=== PATIENT | female | born 1970 | race Caucasian/White ===

== ENCOUNTER → 2017-07-28 09:59 | Outpatient (CLI) | payer BC, SELFPAY ==
[2017-07-28 12:46] LABS: Anion Gap 8 (5-15); BUN 10 mg/dL (7-18); BUN/Creat Ratio 13.1 RATIO (10-20); Calcium,Total 8.6 mg/dL (8.5-10.1); Chloride 109 mmol/L (98-107); Creatinine, Serum 0.76 mg/dL (0.55-1.02); EST Glomerular Filtration Rate 87 mL/min (>60); Est Glom Filt Rate - Afr Amer 106 mL/min (>60); Glucose 91 mg/dL (74-106); Iron 127 ug/dL (50-170); Sodium Level 143 mmol/L (136-145); Thyroid Stim Hormone (TSH) 0.78 uIU/mL (0.358-3.74)
[2017-07-28 13:05] LABS: Hematocrit 40.1 % (37-47); Hemoglobin 12.9 g/dl (12.0-15.0); Mean Corp Hgb Conc 32.2 g/gl (32-36); Mean Corpuscular Hgb 29.1 pg (27.0-32.0); Mean Corpuscular Volume 90.5 fL (81-99); Mean Platelet Vol. 11.2 fl (6.2-12.0); Platelet Count 217 K/mm3 (150-450); RBC Distribution Width CV 13.9 % (11.6-14.6); Red Blood Count 4.43 M/mm3 (4.2-5.4); Scan Indicated on CBC? Y/N NO; White Blood Count 5.7 K/mm3 (4.4-11.0)
[2017-07-29 11:18] LABS: Vitamin B12 423 pg/mL (211-911); Vitamin D,25 Hydroxy 23.8 ng/mL (29.95-100.01)
== END ==
PROVIDERS: Family Provider Family Medicine; PCP Family Medicine; Visit Provider Family Medicine
DX: R53.83 Other fatigue (principal)
CPT/HCPCS: 36415; 80048; 82306; 82533; 82607; 83540; 84443; 85027

== ENCOUNTER → 2018-04-13 11:56 | Outpatient (CLI) | payer BC, SELFPAY ==
--- NOTE | 2018-04-13 12:05 | BI_ITS ---
MAMMOGRAPHY - BILATERAL SCREENING REASON FOR EXAM: Female, 47 years old. Routine annual screening examination. PERTINENT HISTORY: Non-contributory. Remote right stereotactic breast biopsy. TECHNIQUE: Digital bilateral breast amparo (3D mammographic acquisition) in the CC and MLO projections. 2-D mediolateral oblique (MLO) and craniocaudad (CC) views of both breasts were obtained. CAD: Full Field Digital Mammography with Computer Added Detection was performed. COMPARISON: Comparison is made with prior study dated September 12, 2017 and November 13, 2014. FINDINGS: Breast Composition: There are scattered areas of fibroglandular density. There are no dominant masses or suspicious calcifications. A tissue clip marker is once again seen in the deep superior lateral aspect of the right breast. Stable benign-appearing bilateral axillary lymph nodes. No other significant abnormalities are identified. There has been no significant change since the prior study. BI/SCREENING MAMM (CAD), BILAT IMPRESSION: Stable bilateral screening mammogram. Yearly follow-up mammogram recommended. (A) ASSESSMENT CATEGORY: BIRADS Category 2: Benign. A letter regarding these results will be sent to the patient by the facility within 30 days. Approximately 10% of breast cancers are not detected by mammography. A normal mammogram should not delay biopsy of a clinically suspicious abnormality. [id number] Electronically Signed: Richard Love MD at 14:03 EST , Service support ,
== END ==
PROVIDERS: Family Provider Family Medicine; PCP Family Medicine; Visit Provider Obstetrics & Gynecology
DX: Z12.31 Encounter for screening mammogram for malignant neoplasm of breast (principal)
CPT/HCPCS: 77063; 77067

== ENCOUNTER → 2018-07-24 11:04 | Outpatient (CLI) | payer BC, SELFPAY ==
[2018-07-24 13:18] LABS: Vitamin D,25 Hydroxy 22.2 ng/mL (29.95-100.01)
== END ==
PROVIDERS: Family Provider Family Medicine; PCP Family Medicine; Visit Provider Family Medicine
DX: E55.9 Vitamin D deficiency, unspecified (principal)
CPT/HCPCS: 36415; 82306

== ENCOUNTER → 2019-08-10 08:56 | Outpatient (CLI) | payer BC, SELFPAY ==
--- NOTE | 2019-08-10 08:58 | RAD_ITS ---
STUDY: X-RAY CHEST REASON FOR EXAM: Female, 48 years old. Cough since winter, getting worse TECHNIQUE: PA and lateral views of the chest. COMPARISON: Comparison is made with prior examination of June 04, 2011. FINDINGS: The lungs are clear and expanded. There is no demonstrated pleural abnormality. Normal size heart. Normal mediastinum and shashank. Normal visualized pulmonary arteries. Normal visualized aortic arch and descending thoracic aorta. There are mild degenerative changes of the visualized thoracic spine. Normal visualized ribs, clavicles, and shoulders. There is no demonstrated abnormality of the visualized soft tissue structures of the upper abdomen. RAD/Chest PA and Lateral IMPRESSION: Normal x-ray examination of the chest. Electronically Signed: Richard Love, at 10:27 EDT , Service support ,
== END ==
PROVIDERS: PCP Family Medicine; Referring Provider Family Medicine; Visit Provider Family Medicine
DX: R05 Cough (principal)
CPT/HCPCS: 71046

== ENCOUNTER 2020-05-30 11:06 | Outpatient (RCR) | payer BC, SELFPAY | END 2020-08-12 23:59 | LOC: IMMUN 11:06 | PROVIDERS: PCP Family Medicine; Visit Provider Family Medicine | DX: Z23 Encounter for immunization (principal) | CPT/HCPCS: 0001A; 0002A; 91300 ==

== ENCOUNTER → 2020-07-22 10:27 | Outpatient (CLI) | payer BC, SELFPAY ==
--- NOTE | 2020-07-22 10:34 | BI_ITS ---
MAMMOGRAPHY - BILATERAL SCREENING 3-D TOMOSYNTHESIS REASON FOR EXAM: Female, 49 years old. SCREENING PERTINENT HISTORY: No significant family history. TECHNIQUE: 2-D mammograms and 3-D Tomosynthesis of the breast (s) were performed. CAD was performed. COMPARISON: 04/13/2018 FINDINGS: The breast composition is composed of scattered fibroglandular density. Scattered benign calcifications are seen. No dense spiculated masses or suspicious microcalcifications are identified. No architectural distortion is identified. There is no skin thickening or retraction. There has been no significant change since the prior study. BI/SCRN MAMM (CAD)W/ARIANE BILAT IMPRESSION: No mammographic signs of malignancy. Routine yearly mammograms recommended. ASSESSMENT CATEGORY: BIRADS Category 1: Negative. A letter regarding these results will be sent to the patient by the facility within 30 days. FOLLOW UP RECOMMENDATION: Yearly follow up mammogram recommended. (A) Approximately 10% of breast cancers are not detected by mammography. A normal mammogram should not delay biopsy of a clinically suspicious abnormality. Electronically Signed: Hector Cho MD at 11:19 EDT , Service support ,
== END ==
PROVIDERS: PCP Family Medicine
DX: Z12.31 Encounter for screening mammogram for malignant neoplasm of breast (principal)
CPT/HCPCS: 77063; 77067

== ENCOUNTER 2021-06-21 09:24 | Observation (INO) | payer BC, SELFPAY ==
[2021-06-21] VITALS (13 sets, daily range): BP systolic 110–139; BP diastolic 64–100; PULSE 57–97; RESP 14–18; TEMP 35.6–36.9; O2SAT 97–100; BMI 26.5; BMI 26.9
--- NOTE | 2021-06-21 09:50 | EDS_ITS ---
HPI HPI - Female History of Present Illness Chief Complaint: Flank Pain Narrative Narrative: 50-year-old female presenting with right flank pain which started on . She states is fairly constant but intermittently sharper and radiates around the anterior aspect of the abdomen. She has nausea with this. She has no history of kidney stones. She denies urinary complaints. No constipation or diarrhea. She is not had a fever or chills. No vaginal complaints. PFSH PFSH Medical History no medical history Home Medications multivitamin 1 tab DAILY 06/21/21 [History Last Taken Unknown] Allergy/AdvReac Type Severity Reaction Status Date / Time Penicillins Allergy Hives Verified 06/21/21 09:27 Family History (Updated 06/21/21 @ 13:[address] Apple Castillo MD) Mother No problems noted. Surgical History (Updated 06/21/21 @ 13:[address] Apple Castillo MD) H/O abdominoplasty History of salpingectomy Social History Smoking Status: Never smoker ROS ROS ED Constitutional Constitutional ED: Denies chills or fever(s) Eyes Eyes: Denies blurry vision or diplopia ENT ENT ED: Denies rhinorrhea or sore throat Cardiovascular Cardiovascular: Denies chest pain or palpitations Respiratory/Chest Respiratory/Chest: Denies cough or dyspnea Gastrointestinal Gastrointestinal: Reports abdominal pain, nausea and vomiting; Denies constipation or diarrhea Genitourinary Genitourinary ED: Denies dysuria or hematuria Musculoskeletal Musculoskeletal: Denies myalgias Integumentary Denies rash Neurologic Neurologic: Denies headache(s) or weakness Psychiatric Psychiatric: Denies anxiety or depression EXAM Physical Exam Const Vital Signs: 06/21/21 09:25 06/21/21 09:38 06/21/21 10:40 Temperature 96.0 F L 98.5 F Temperature Source Temporal Oral Pulse Rate 97 69 Respiratory Rate 18 16 Respiratory Effort Normal Respiratory Pattern Normal Blood Pressure 138/100 H 110/78 Blood Pressure Mean 112 88 Pulse Ox 99 98 Oxygen Delivery Method Room Air Room Air 06/21/21 12:46 Temperature 97.8 F Temperature Source Oral Pulse Rate 66 Respiratory Rate 18 Respiratory Effort Respiratory Pattern Blood Pressure 132/84 H Blood Pressure Mean 100 Pulse Ox 98 Oxygen Delivery Method Room Air Positive well nourished General Appearance ED: NAD; Negative for pallor HEENT Reports moist mucous membranes Negative for trauma Eyes PERRL and EOMs intact bilaterally Resp normal respiratory effort and clear to auscultation bilaterally Cardio regular rate and regular rhythm GI GI Narrative: Negative Maravilla sign Palpation: tender RLQ and RUQ Back/Spine General Back: CVA tenderness right Neuro oriented x3, CN's II-XII intact bilaterally and no sensory deficits noted Sensorium / Orientation: alert Psych mental status grossly normal Skin no rashes or lesions noted General Skin Exam: Negative for jaundice or pallor MDM MDM MDM Narrative Medical decision making narrative: Patient presenting with abdominal pain. Initially I felt she might of had a kidney stone however after I obtained her urinalysis there was urine bilirubin, urobilinogen. No evidence of blood. Not consistent with UTI. I obtained a CBC which shows no leukocytosis. Hemoglobin hematocrit are stable. Platelets are normal. Renal function is also within normal limits however the patient's total bilirubin is 3.90, direct bilirubin 2.4, AST 129, ALT 325. Lipase is normal. Discussed with Dr. Castillo who recommended getting a right upper quadrant ultrasound rather than CAT scan. I ordered a right upper quadrant ultrasound which shows common duct dilatation. There are several small gallstones as well. There is no gallbladder wall thickening or signs of acute cholecystitis. I also spoke with Dr. Friend as Dr. Castillo felt the patient would need an ERCP. He did come to the emergency room to evaluate the patient with Dr. Castillo. Patient given Cipro and Flagyl due to penicillin allergy. She was given IV fluids. She only needed 1 dose of Toradol and 1 dose of 0.5 mg Dilaudid and she was comfortable. It was requested that I obtained an EKG which is a normal sinus rhythm with a ventricular rate of 68 bpm on my interpretation. A COVID test was ordered and is pending on patient transfer. This will be followed up by GI and surgery. Patient will be transported to a surgical suite for ERCP. Patient transported in stable condition. Impression: 1. Transaminitis 2. Choledocholithiasis Lab Data Attestation: I reviewed the patient's lab results. Labs: Laboratory Results - last 24 hr 06/21/21 06/21/21 06/21/21 09:40 10:25 10:25 WBC 6.0 RBC 4.98 Hgb 15.3 H Hct 45.3 MCV 91.0 MCH 30.7 MCHC 33.8 RDW Std Deviation 40.7 RDW Coeff of Jennifer 12.1 Plt Count 228 MPV 10.9 Immature Gran % (Auto) 0.300 Neut % (Auto) 62.4 Lymph % (Auto) 25.5 [place] % (Auto) 8.4 Eos % (Auto) 2.7 Baso % (Auto) 0.7 Absolute Neuts (auto) 3.7 Absolute Lymphs (auto) 1.52 Nucleated RBC % 0 Sodium 137 Potassium 4.1 Chloride 106 Carbon Dioxide 25.0 Anion Gap 6 BUN 9 Creatinine 0.81 Estim Creat Clear Calc 73.35 Est GFR (MDRD) Af Amer 97 Est GFR (MDRD) Non-Af 80 BUN/Creatinine Ratio 11.1 Glucose 107 H Calcium 8.8 Total Bilirubin 3.90 H Direct Bilirubin 2.84 H AST 129 H ALT 325 H Alkaline Phosphatase 96 Total Protein 7.8 Albumin 3.8 Globulin 4.0 Lipase 176 Urine Color Yellow Urine Clarity Clear Urine pH 6.0 Ur Specific [place] 1.020 Urine Protein Negative Urine Glucose (UA) Normal Urine Ketones 5 H Urine Occult Blood Negative Urine Nitrite Negative Urine Bilirubin 3 H Urine Urobilinogen 8 H Ur Leukocyte Esterase 25 H Urine RBC 0 SEEN Urine WBC 0-5 SEEN Ur Squamous Epith Cells 0-5 SEEN Urine Bacteria 2+ Urine Mucus 0 SEEN Urine Test Negative Radiography Diagnostic Testing: Clinical Impression(s) from Imaging Studies Gallbladder Ultrasound 06/21/21 10:51 IMPRESSION: 1. Several small gallstones Electronically Signed: Wilbur Lau MD at 13:11 EDT Reading Location ID and State: [facility] / [place] , Service support , Discharge Plan Triage Chief Complaint: Flank Pain ED Provider: Rakan Nance Dx/Rx/DC Orders Prescriptions: No Action multivitamin Tablet,Chewable 1 tab DAILY RF: 0 Primary Care Provider: Darius Moulton
[2021-06-21 10:01] LABS: Mucous, Urine 0 SEEN /hpf (<or=2+); Red Blood Cells-Urine 0 SEEN /hpf (0-5)
[2021-06-21 10:02] LABS: Color, Urine Yellow (Yellow); Glucose, Dipstick Normal (Normal); Ketone-Dipstick 5 mg/dl (Negative); Leukocyte Esterase-Dipstick 25 /ul (Negative); Nitrite-Dipstick Negative (Negative); Occult Blood-Urine Negative /ul (Negative); Protein-Dipstick Negative (Negative); Urine Clarity Clear (Clear); Urine Urobilinogen 8 mg/dl (Normal)
[2021-06-21 10:03] LABS: Urine Bilirubin Dipstick 3 mg/dL (Negative)
[2021-06-21 10:05] LABS: Internal QC Validated? YES +Cl - CLEAR BKGD; Pregnancy, Urine Negative Negative
[2021-06-21 10:07] LABS: Bacteria 2+ /hpf (None Seen); Squamous Epithelial Cells - UA 0-5 SEEN /hpf (5-10); White Blood Cells 0-5 SEEN /hpf (0-5)
[2021-06-21] MEDS: 0.9% Normal Saline 1,000 ML 1000 ML IV (10:29)
[2021-06-21] MEDS: Ondansetron 4 MG/2 ML Vial IV (10:29)
[2021-06-21] MEDS: Ketorolac 15 MG/ML Vial IV (10:29)
[2021-06-21 10:49] LABS: AST(SGOT) 129 U/L (15-37); Alanine Aminotransfer ALT/SGPT 325 U/L (13-56); Albumin, Serum 3.8 g/dL (3.2-5.0); Alkaline Phosphatase 96 U/L (45-117); Anion Gap 6 (5-15); BUN 9 mg/dL (7-18); BUN/Creat Ratio 11.1 RATIO (10-20); Bilirubin, Direct 2.84 mg/dL (0.00-0.30); Calcium,Total 8.8 mg/dL (8.5-10.1); Chloride 106 mmol/L (98-107); Creatinine, Serum 0.81 mg/dL (0.55-1.02); EST Glomerular Filtration Rate 80 mL/min (>60); Est Glom Filt Rate - Afr Amer 97 mL/min (>60); Estimated Creatinine Clearance 73.35 ml/min; Glucose 107 mg/dL (74-106); Lipase 176 U/L (73-393); Potassium 4.1 mmol/L (3.5-5.1); Protein, Total 7.8 g/dL (6.4-8.2); Sodium Level 137 mmol/L (136-145)
--- NOTE | 2021-06-21 10:51 | US_ITS ---
STUDY: ABDOMINAL ULTRASOUND - RIGHT UPPER QUADRANT REASON FOR VISIT: Female, 50 years old ruq pain TECHNIQUE: Ultrasound evaluation of the right upper quadrant was performed with real-time and static samuel-scale imaging. TECHNICAL QUALITY: Adequate. COMPARISON: None. FINDINGS: Liver: The liver measures cm. There is normal echogenicity of the liver. The bile ducts are within normal limits. There is hepatic color flow. The direction of portal flow is hepatopetal. There is no demonstrated mass lesion. Gallbladder: Normal distended gallbladder. The gallbladder wall measures 3 mm. There is a negative sonographic Maravilla''s sign. There is no pericholecystic fluid. Several small gallstones are present but the remaining aspects of the gallbladder lumen are normal. Common Bile Duct (C.B.D.): The common bile duct measures 2.6 mm. Pancreas: Normal size of the head, body and tail of the pancreas. There is normal echogenicity of the pancreas. There is no demonstrated pancreatic mass or cyst. Right Kidney: Normal size of the right kidney. The right kidney measures 10.12 x 6.25 x 4.78 cm. Normal renal cortex. The right cortex measures cm. There is no demonstrated renal mass or cyst. There is no right hydronephrosis. US/Gallbladder IMPRESSION: 1. Several small gallstones Electronically Signed: Wilbur Lau MD at 13:11 EDT ,
[2021-06-21 11:03] LABS: Absolute Lymphocyte Count 1.52 X10^3/uL (0.83-4.51); Absolute Neutrophil Count 3.7 X10^3/uL (2.0-7.7); Basophil# 0.04 X10^3/uL; Basophil% 0.7 % (0-1); Eosinophil# 0.16 X10^3/uL; Eosinophils% 2.7 % (0-5); Hematocrit 45.3 % (37-47); Hemoglobin 15.3 g/dL (12.0-15.0); Lymphocyte # 1.52 X10^3/ul (0.83-4.51); Lymphocyte % 25.5 % (19-41); Mean Corp Hgb Conc 33.8 g/dL (32-36); Mean Corpuscular Hgb 30.7 pg (27.0-32.0); Mean Platelet Vol. 10.9 fl (6.2-12.0); Monocyte% 8.4 % (0-10); NRBC Flagged by Analyzer 0 % (0-5); Neutrophil # 3.73 X10^3/uL (2.7-7.7); Neutrophil % 62.4 % (47-70); Platelet Count 228 K/mm3 (150-450); RBC Distribution Width CV 12.1 % (11.6-14.6); RBC Distribution Width SD 40.7 fl (35.1-43.9); Red Blood Count 4.98 M/mm3 (4.2-5.4)
[2021-06-21] MEDS: HYDROmorphone 0.5 MG/0.5 ML SYRINGE IV (11:24)
[2021-06-21] MEDS: Ciprofloxacin 500 MG Tablet PO (11:24)
[2021-06-21] MEDS: metroNIDAZOLE 500 MG Tablet PO (11:24)
--- NOTE | 2021-06-21 13:00 | HP.PCM.SX_ITS ---
HPI - General HPI Narrative IRIS BANUELOS, is a 50 F who presents with right-sided abdominal/flank pain starting night about 630. Patient rated the pain at 5?6/10. Patient states she ate about an hour prior. Patient had some nausea and vomiting on . Then was able to sleep; however, continue to have constant right sided upper abdominal pain. LFTs were elevated in the ER with a bilirubin at 3.9, direct bilirubin 2.8, elevated AST and ALT. Ultrasound of the gallbladder did show gallstones as well as a dilated common bile duct no obvious pericholecystic fluid or gallbladder wall thickening per my read report pending. PFSH Medical History no medical history Home Medications multivitamin 1 tab DAILY 06/21/21 [History Last Taken Unknown] Allergy/AdvReac Type Severity Reaction Status Date / Time Penicillins Allergy Hives Verified 06/21/21 09:27 Family History Mother No problems noted. Surgical History (Updated 06/21/21 @ 13:[address] Apple Castillo MD) H/O abdominoplasty History of salpingectomy Social History Smoking Status: Never smoker ROS Constitutional Constitutional: Denies anorexia or chills ENT HEENT: Denies dizziness Cardiovascular Cardiovascular: Denies chest pain Respiratory/Chest Respiratory/Chest: Denies shortness of breath at rest Gastrointestinal Gastrointestinal: Denies abdominal pain, constipation, diarrhea, heartburn, hematemesis or melena Genitourinary Genitourinary: Denies burning urination Musculoskeletal Musculoskeletal: Denies joint pain Integumentary Integumentary: Denies rash Neurologic Neurologic: Denies abnormal gait, abnormal hearing, focal weakness, paresthesias or sensory deficit Endocrine Endocrinology: Denies palpitations Hematologic/Lymphatic Hematologic/Lymphatic: Denies anemia, easy bleeding or easy bruising Vital Signs Vital Signs Vital Signs: 06/21/21 09:25 06/21/21 09:38 06/21/21 10:40 Temperature 96.0 F L 98.5 F Temperature Source Temporal Oral Pulse Rate 97 69 Respiratory Rate 18 16 Respiratory Effort Normal Respiratory Pattern Normal Blood Pressure 138/100 H 110/78 Blood Pressure Mean 112 88 Pulse Ox 99 98 Oxygen Delivery Method Room Air Room Air 04/17/22 12:46 Temperature 97.8 F Temperature Source Oral Pulse Rate 66 Respiratory Rate 18 Respiratory Effort Respiratory Pattern Blood Pressure 132/84 H Blood Pressure Mean 100 Pulse Ox 98 Oxygen Delivery Method Room Air Weight Weight: 154 lb 8.705 oz Body Mass Index (BMI) 26.5 Physical Exam Const alert, oriented x3 and no apparent distress HEENT normocephalic and head/scalp atraumatic Resp normal respiratory effort Cardio regular rate GI soft to palpation; Negative for non-distended Palpation: tender epigastric and RUQ; Negative for guarding Extremity no clubbing, cyanosis or edema Neuro CN's II-XII intact bilaterally Psych mental status grossly normal Results Lab / Micro Data Result Diagrams: 06/21/21 10:25 06/21/21 10:25 Labs: Laboratory Results - last 24 hr 06/21/21 09:40: Urine Color Yellow, Urine Clarity Clear, Urine pH 6.0, Ur Specific [place] 1.020, Urine Protein Negative, Urine Glucose (UA) Normal, Urine Ketones 5 H, Urine Occult Blood Negative, Urine Nitrite Negative, Urine Bilirubin 3 H, Urine Urobilinogen 8 H, Ur Leukocyte Esterase 25 H, Urine RBC 0 SEEN, Urine WBC 0-5 SEEN, Ur Squamous Epith Cells 0-5 SEEN, Urine Bacteria 2+, Urine Mucus 0 SEEN, Urine Test Negative 06/21/21 10:25: WBC 6.0, RBC 4.98, Hgb 15.3 H, Hct 45.3, MCV 91.0, MCH 30.7, MCHC 33.8, RDW Std Deviation 40.7, RDW Coeff of Jennifer 12.1, Plt Count 228, MPV 10.9, Immature Gran % (Auto) 0.300, Neut % (Auto) 62.4, Lymph % (Auto) 25.5, [place] % (Auto) 8.4, Eos % (Auto) 2.7, Baso % (Auto) 0.7, Absolute Neuts (auto) 3.7, Absolute Lymphs (auto) 1.52, Nucleated RBC % 0 06/21/21 10:25: Sodium 137, Potassium 4.1, Chloride 106, Carbon Dioxide 25.0, Anion Gap 6, BUN 9, Creatinine 0.81, Estim Creat Clear Calc 73.35, Est GFR (MDRD) Af Amer 97, Est GFR (MDRD) Non-Af 80, BUN/Creatinine Ratio 11.1, Glucose 107 H, Calcium 8.8, Total Bilirubin 3.90 H, Direct Bilirubin 2.84 H, AST 129 H, ALT 325 H, Alkaline Phosphatase 96, Total Protein 7.8, Albumin 3.8, Globulin 4.0, Lipase 176 Assessment & Plan Assessment/Plan (1) Cholelithiasis: (2) Choledocholithiasis: (3) Biliary obstruction: PLAN: Dr. Archibald also the patient planning for an ERCP today. We will plan for tomorrow laparoscopic cholecystectomy. Reviewed the anatomy with the patient and discussed the procedure: laparoscopic cholecystectomy possi ble cholangiograms, possible open. Review risks including but not limited to bleeding, infection, hernia, bile leak, retained gallstones requiring another procedure ERCP- Endoscopic Retrograde Cholangiopancreatography, injury to another organ (bile ducts, common bile duct, small bowel, etc.) and conversion to an open procedure. All questions were answered. Apple Castillo M.D. Pager: [phone] [facility] [address] [place] [address] [place] [address] Office: [phone] Procedure Criteria Type of Procedure Procedure Type: Elective Elective Risks - COVID COVID Risk Discussion: The surgeon/proceduralist and patient have discussed in detail the risk of exposure to and/or potential harm posed by the COVID-19 virus with having a surgery/procedure at this time versus the risk of delaying the surgery/procedure. It is not possible to know either the risk of delaying the surgery or procedure or chance of getting an infection with perfect accuracy, but a joint decision was made between the patient and the surgeon/proceduralist to proceed at this time with the scheduled surgery/procedure as indicated on the consent form.
--- NOTE | 2021-06-21 13:28 | EKG12_ITS ---
Test Reason : GALBLADDER Blood Pressure : / mmHG Vent. Rate : 068 BPM Atrial Rate : 068 BPM P-R Int : 168 ms QRS Dur : 068 ms QT Int : 430 ms P-R-T Axes : 037 036 022 degrees QTc Int : 457 ms Normal sinus rhythm Normal ECG Confirmed by VINCENZO LADD, HEMANTH ([id number]), digital editor BAN MONSIVAIS ([id number]) on 06/24/2021 8:50:03 AM Referred By: HUEY Confirmed By:HEMANTH LOYA MD
--- NOTE | 2021-06-21 14:01 | RAD_ITS ---
ERCP INDICATION: Abdominal pain. TECHNIQUE: 3:11 minutes of fluoroscopy of the abdomen was utilized and operating room during an ERCP and 8 images are submitted for interpretation. FINDINGS: There are filling defects in the common bile duct which may represent stones or air bubbles. Balloon sphincterotomy and stent placement was performed. IMPRESSION: Suspect common bile duct stones treated with balloon sphincterotomy and stent placement. Electronically Signed: Rad Hinds MD at 16:06 EDT , RAD/ERCP Biliary Only
[2021-06-21] MEDS: 0.9% Normal Saline 1,000 ML 150 ML IV (14:10)
--- NOTE | 2021-06-21 14:29 | EX.PCM.CON.G ---
HPI Consult Data Date of Consult: 06/21/21 HPI Narrative HPI Narrative: IRIS BANUELOS, 50-year-old female presenting with right flank pain which started on . She states is fairly constant but intermittently sharper and radiates around the anterior aspect of the abdomen. She has nausea with this. She has not had this pain before in the past. She denies any chest pain or shortness of breath. She did admit to intermittent low-grade fevers prior to coming to the hospital. She has no history of kidney stones. She denies urinary complaints. No constipation or diarrhea. In the ED she had a biochemical analysis that showed bilirubin of 3.9, AST of 125, ALT of 95. She got an ultrasound of right upper quadrant showed dilated common bile duct to 9 mm with a thickened gallbladder and gallbladder wall inflammation. I was called for therapeutic ERCP. She has been started on antibiotic therapy. She does not take any nonsteroidals or anticoagulants. Surgical history includes abdominal plasty and fallopian tube removal. [facility] Medical History no medical history Home Medications multivitamin 1 tab DAILY 06/21/21 [History Last Taken Unknown] Allergy/AdvReac Type Severity Reaction Status Date / Time Penicillins Allergy Hives Verified 06/21/21 09:27 Family History (Updated 06/21/21 @ 13:[address] Apple Castillo MD) Mother No problems noted. Surgical History (Updated 06/21/21 @ 13:[address] Apple Castillo MD) H/O abdominoplasty History of salpingectomy Social History Smoking Status: Never smoker ROS Gastrointestinal Gastrointestinal: Reports abdominal pain Physical Exam Const alert General Appearance: cooperative Orientation / Consciousness: oriented to person HEENT hearing grossly normal bilaterally Head and Scalp: normal to inspection Face and Sinus: face symmetric Nose: external nose normal Mouth: oral and palatal mucosa normal Eyes conjunctivae normal General Eye: normal appearance of both eyes Neck full ROM General: normal visual inspection Lymph Lymphatic: no lymphadenopathy noted Chest inspection of chest normal and palpation of chest normal Chest: symmetrical chest wall rise Resp normal respiratory effort Effort and Inspection: able to speak in complete sentences Cardio regular rate GI non-distended Percussion: normal to percussion Rectal Exam: deferred Neuro Speech: speech normal Gait (Neuro): normal gait Lab / Micro Data Result Diagrams: 06/21/21 10:25 06/21/21 10:25 Labs: Laboratory Results - last 24 hr 06/21/21 09:40: Urine Color Yellow, Urine Clarity Clear, Urine pH 6.0, Ur Specific [place] 1.020, Urine Protein Negative, Urine Glucose (UA) Normal, Urine Ketones 5 H, Urine Occult Blood Negative, Urine Nitrite Negative, Urine Bilirubin 3 H, Urine Urobilinogen 8 H, Ur Leukocyte Esterase 25 H, Urine RBC 0 SEEN, Urine WBC 0-5 SEEN, Ur Squamous Epith Cells 0-5 SEEN, Urine Bacteria 2+, Urine Mucus 0 SEEN, Urine Test Negative 06/21/21 10:25: WBC 6.0, RBC 4.98, Hgb 15.3 H, Hct 45.3, MCV 91.0, MCH 30.7, MCHC 33.8, RDW Std Deviation 40.7, RDW Coeff of Jennifer 12.1, Plt Count 228, MPV 10.9, Immature Gran % (Auto) 0.300, Neut % (Auto) 62.4, Lymph % (Auto) 25.5, [place] % (Auto) 8.4, Eos % (Auto) 2.7, Baso % (Auto) 0.7, Absolute Neuts (auto) 3.7, Absolute Lymphs (auto) 1.52, Nucleated RBC % 0 06/21/21 10:25: Sodium 137, Potassium 4.1, Chloride 106, Carbon Dioxide 25.0, Anion Gap 6, BUN 9, Creatinine 0.81, Estim Creat Clear Calc 73.35, Est GFR (MDRD) Af Amer 97, Est GFR (MDRD) Non-Af 80, BUN/Creatinine Ratio 11.1, Glucose 107 H, Calcium 8.8, Total Bilirubin 3.90 H, Direct Bilirubin 2.84 H, AST 129 H, ALT 325 H, Alkaline Phosphatase 96, Total Protein 7.8, Albumin 3.8, Globulin 4.0, Lipase 176 Micro: Microbiology 06/21/21 13:32 Nasal Secretion SARS-CoV-2 Antigen (Rapid) - Final Radiology Impression Gallbladder Ultrasound 06/21/21 10:51 IMPRESSION: 1. Several small gallstones Electronically Signed: Wilbur Lau MD at 13:11 EDT Reading Location ID and State: [facility] / [place] , Service support , Assessment & Plan Assessment/Plan (1) Biliary obstruction: PLAN: Dilated obstruction likely secondary to choledocholithiasis versus Mirizzi syndrome. Patient should undergo therapeutic ERCP for stone removal and possible stent placement. (2) Choledocholithiasis: PLAN: With the common bile duct diameter at 9 mm and the gallbladder intact it makes it very likely that she does have choledocholithiasis. (3) Cholelithiasis: PLAN: Patient will likely have cholecystectomy tomorrow. She is on antibiotics we will continue those antibiotics. Charges/Coding Visit Charges Inpatient E&M: 58632 Init Hosp L3
--- NOTE | 2021-06-21 15:54 | OP.ERCP_ITS ---
Patient Name: Kate De La Paz Procedure Date: 06/21/2021 2:16 PM Date of : 1970 Age: 50 Procedure: ERCP Indications: Bile duct stone(s), Common bile duct stone(s), Suspected ascending cholangitis, Jaundice Providers: Marcus Archibald DO Medicines: General Anesthesia Patient Profile: This is a 50 year old female. Refer to note in patient chart for documentation of history and physical. Patient has symptoms of acute jaundice. Complications: No immediate complications. Procedure: Pre-Anesthesia Assessment: - Prior to the procedure, a History and Physical was performed, and patient medications and allergies were reviewed. The patient is competent. The risks and benefits of the procedure and the sedation options and risks were discussed with the patient. All questions were answered and informed consent was obtained. Patient identification and proposed procedure were verified by the physician in the pre-procedure area. Mental Status Examination: alert and oriented. Airway Examination: normal oropharyngeal airway and neck mobility. Respiratory Examination: clear to auscultation. CV Examination: normal. Prophylactic Antibiotics: The patient does not require prophylactic antibiotics. Prior Anticoagulants: The patient has taken no previous anticoagulant or antiplatelet agents. ASA Grade Assessment: II - A patient with mild systemic disease. After reviewing the risks and benefits, the patient was deemed in satisfactory condition to undergo the procedure. The anesthesia plan was to use moderate sedation / analgesia (conscious sedation). Immediately prior to administration of medications, the patient was re-assessed for adequacy to receive sedatives. The heart rate, respiratory rate, oxygen saturations, blood pressure, adequacy of pulmonary ventilation, and response to care were monitored throughout the procedure. The physical status of the patient was re-assessed after the procedure. After obtaining informed consent, the scope was passed under direct vision. Throughout the procedure, the patient's blood pressure, pulse, and oxygen saturations were monitored continuously. The duodenoscope was introduced through the mouth, and advanced to the duodenum and used to inject contrast into the bile duct and ventral pancreatic duct. The ERCP was accomplished without difficulty. The patient tolerated the procedure well. Findings: The photographic double film was normal. The esophagus was successfully intubated under direct vision. The scope was advanced to a normal major papilla in the descending duodenum without detailed examination of the pharynx, larynx and associated structures, and upper GI tract. The upper GI tract was grossly normal. The bile duct was deeply cannulated with the short-nosed traction sphincterotome. Contrast was injected. I personally interpreted the bile duct images. There was brisk flow of contrast through the ducts. Opacification of the main bile duct was successful. The maximum diameter of the ducts was 7 mm. The entire biliary tree except for the cystic duct and gallbladder and main bile duct contained four stones, the largest of which was 6 mm in diameter. The main bile duct was moderately dilated and diffusely dilated, with a stone causing an obstruction. The largest diameter was 9 mm. A straight Roadrunner wire was passed into the biliary tree. A 5 mm biliary sphincterotomy was made with a traction (standard) sphincterotome using ERBE electrocautery. There was no post-sphincterotomy bleeding. The biliary tree was swept with a 15 mm balloon starting at the bifurcation. Sludge was swept from the duct. All stones were removed. Dilation of the common bile duct with a 6-7-8 mm balloon dilator was successful. One 10 Fr by 5 cm temporary stent with two internal flaps was placed 5 cm into the common bile duct. Bile flowed through the stent. The stent was in good position. Deep cannulation of the dorsal pancreatic duct was accomplished with the tapered cannula with glidewire. A 0.035 inch x 260 cm angled Hydra Jagwire was passed into the ventral pancreatic duct. One 3 Fr by 5 cm temporary stent with no external flaps and no internal flaps was placed 5 cm into the dorsal pancreatic duct. Clear fluid flowed through the stent. The stent was in good position. Impression: - The entire main bile duct was moderately dilated, with a stone causing an obstruction. - Choledocholithiasis was found. Complete removal was accomplished by biliary sphincterotomy and balloon extraction. - A biliary sphincterotomy was performed. - The biliary tree was swept. - Common bile duct was successfully dilated. - One temporary stent was placed into the common bile duct. - One temporary stent was placed into the dorsal pancreatic duct. Procedure Code(s): --- Professional --- 58500, Endoscopic retrograde cholangiopancreatography (ERCP); with placement of endoscopic stent into biliary or pancreatic duct, including pre- and post-dilation and guide wire passage, when performed, including sphincterotomy, when performed, each stent [id number], 59, Endoscopic retrograde cholangiopancreatography (ERCP); with placement of endoscopic stent into biliary or pancreatic duct, including pre- and post-dilation and guide wire passage, when performed, including sphincterotomy, when performed, each stent 99237, Endoscopic retrograde cholangiopancreatography (ERCP); with removal of calculi/debris from biliary/pancreatic duct(s) 68183, Endoscopic catheterization of the biliary ductal system, radiological supervision and interpretation CPT copyright 2017 [employer]. All rights reserved. The codes documented in this report are preliminary and upon outpatient coder review may be revised to meet current compliance requirements. Marcus Archibald DO 06/21/2021 3:53:47 PM This report has been signed electronically. Number of Addenda: 0 Note Initiated On: 06/21/2021 2:16 PM
--- NOTE | 2021-06-21 15:55 | OP.CCLET_ITS ---
06/21/2021 Darius Moulton [address] [place] [address] Re : ERCP procedure for Kate De La Paz Dear Dr. Moulton This procedure was performed on Monday, June 21, 2021. My impressions and recommendations are as follows: Impressions : - The entire main bile duct was moderately dilated, with a stone causing an obstruction. - Choledocholithiasis was found. Complete removal was accomplished by biliary sphincterotomy and balloon extraction. - A biliary sphincterotomy was performed. - The biliary tree was swept. - Common bile duct was successfully dilated. - One temporary stent was placed into the common bile duct. - One temporary stent was placed into the dorsal pancreatic duct. Recommendations : My findings are described in the full procedure note, which is enclosed. If I can be of further assistance, please feel free to contact me at . Sincerely, Marcus Archibald, 06/21/2021 3:53:47 PM This report has been signed electronically.
--- NOTE | 2021-06-21 17:10 | NURSING ---
Pt reports having both Pfizer [employer] vaccines about a year ago as well as a booster. Pt does not have vaccination card with her.
[2021-06-21] MEDS: Lactated Ringers 1,000 ML 120 ML IV (17:26)
[2021-06-21] MEDS: metroNIDAZOLE 500 MG/100 ML BAG 100 MG IV ×2 (17:27→21:45)
[2021-06-21] MEDS: oxyCODONE 5 MG Tablet PO (21:44)
[2021-06-21] MEDS: Ciprofloxacin 400 MG/200 ML BAG 200 MG IV (22:54)
[2021-06-22] VITALS (13 sets, daily range): BP systolic 103–152; BP diastolic 68–93; PULSE 73–97; RESP 16–18; TEMP 36.6–37.6; O2SAT 94–99; BMI 26.7
[2021-06-22] MEDS: Lactated Ringers 1,000 ML 120 ML IV ×3 (05:15→18:04)
[2021-06-22] MEDS: metroNIDAZOLE 500 MG/100 ML BAG 100 MG IV ×3 (05:15→21:27)
[2021-06-22 05:19] LABS: Absolute Lymphocyte Count 1.62 X10^3/uL (0.83-4.51); Basophil# 0.04 X10^3/uL; Basophil% 0.4 % (0-1); Eosinophil# 0.02 X10^3/uL; Eosinophils% 0.2 % (0-5); Hematocrit 37.8 % (37-47); Hemoglobin 12.6 g/dL (12.0-15.0); Lymphocyte # 1.62 X10^3/ul (0.83-4.51); Mean Corp Hgb Conc 33.3 g/dL (32-36); Mean Corpuscular Hgb 30.7 pg (27.0-32.0); Mean Corpuscular Volume 92.2 fL (81-99); Mean Platelet Vol. 10.7 fl (6.2-12.0); Monocyte# 0.81 X10^3/uL; Monocyte% 8.5 % (0-10); NRBC Flagged by Analyzer 0 % (0-5); Neutrophil # 7.02 X10^3/uL (2.7-7.7); Neutrophil % 73.6 % (47-70); Platelet Count 203 K/mm3 (150-450); RBC Distribution Width CV 12.1 % (11.6-14.6); RBC Distribution Width SD 41.1 fl (35.1-43.9); White Blood Count 9.5 K/mm3 (4.4-11.0)
[2021-06-22 05:50] LABS: AST(SGOT) 77 U/L (15-37); Alanine Aminotransfer ALT/SGPT 218 U/L (13-56); Albumin, Serum 2.8 g/dL (3.2-5.0); Alkaline Phosphatase 73 U/L (45-117); Anion Gap 7 (5-15); BUN 5 mg/dL (7-18); Bilirubin, Direct 0.67 mg/dL (0.00-0.30); Calcium,Total 8.1 mg/dL (8.5-10.1); Chloride 109 mmol/L (98-107); Creatinine, Serum 0.56 mg/dL (0.55-1.02); EST Glomerular Filtration Rate 123 mL/min (>60); Est Glom Filt Rate - Afr Amer 149 mL/min (>60); Estimated Creatinine Clearance 106.09 ml/min; Globulin 3.2 g/dL (2.2-4.2); Glucose 100 mg/dL (74-106); Potassium 3.6 mmol/L (3.5-5.1); Sodium Level 139 mmol/L (136-145)
[2021-06-22] MEDS: oxyCODONE 5 MG Tablet PO (09:27)
[2021-06-22] MEDS: Ciprofloxacin 400 MG/200 ML BAG 100 MG IV ×2 (09:27→22:37)
[2021-06-22] MEDS: Ondansetron 4 MG/2 ML Vial IV (10:37)
--- NOTE | 2021-06-22 11:30 | PN_ITS ---
Subjective Subjective She underwent ERCP for choledocholithiasis yesterday. She has been afebrile and is not really having any of abdominal pain. She is awaiting cholecystectomy. Objective Data Objective Data Vital Signs: Vital Signs Temp Pulse Resp BP Pulse Ox 97.9 F 81 16 131/93 H 98 06/22/21 17:05 06/22/21 17:15 06/22/21 17:15 06/22/21 17:15 06/22/21 17:15 Oxygen Delivery Method Room Air Weight: 156 lb 11.979 oz Body Mass Index (BMI) 26.7 Intake & Output: Intake and Output for Last 24 Hours 06/20/21 06/21/21 06/22/21 23:59 23:59 23:59 Intake Total 2089 / 2089 2612 / 2612 Output Total 1700 / 1700 Balance 2090 / 1590 912 / 912 Lab / Micro Data Result Diagrams: 06/22/21 04:52 06/22/21 04:52 Labs: Laboratory Results - last 24 hr 06/22/21 04:52: WBC 9.5, RBC 4.10 L, Hgb 12.6, Hct 37.8, MCV 92.2, MCH 30.7, MC HC 33.3, RDW Std Deviation 41.1, RDW Coeff of Jennifer 12.1, Plt Count 203, MPV 10.7, Immature Gran % (Auto) 0.300, Neut % (Auto) 73.6 H, Lymph % (Auto) 17.0 L, Coos % (Auto) 8.5, Eos % (Auto) 0.2, Baso % (Auto) 0.4, Absolute Neuts (auto) 7.0, Absolute Lymphs (auto) 1.62, Nucleated RBC % 0 06/22/21 04:52: Sodium 139, Potassium 3.6, Chloride 109 H, Carbon Dioxide 23.0, Anion Gap 7, BUN 5 L, Creatinine 0.56, Estim Creat Clear Calc 106.09, Est GFR (MDRD) Af Amer 149, Est GFR (MDRD) Non-Af 123, BUN/Creatinine Ratio 9.0 L, Glucose 100, Calcium 8.1 L, Total Bilirubin 1.30 H, Direct Bilirubin 0.67 H, AST 77 H, ALT 218 H, Alkaline Phosphatase 73, Total Protein 6.0 L, Albumin 2.8 L, Globulin 3.2 Micro: Microbiology 06/21/21 13:32 Nasal Secretion SARS-CoV-2 Antigen (Rapid) - Final Radiography Diagnostic Testing: Radiology Impression Cholangiogram 06/22/21 15:55 Physical Exam Const alert General Appearance: cooperative Orientation / Consciousness: oriented to person HEENT hearing grossly normal bilaterally Head and Scalp: normal to inspection Face and Sinus: face symmetric Nose: external nose normal Mouth: oral and palatal mucosa normal Eyes conjunctivae normal General Eye: normal appearance of both eyes Neck full ROM General: normal visual inspection Lymph Lymphatic: no lymphadenopathy noted Chest inspection of chest normal and palpation of chest normal Chest: symmetrical chest wall rise Resp normal respiratory effort Effort and Inspection: able to speak in complete sentences Cardio regular rate GI non-distended Percussion: normal to percussion Rectal Exam: deferred Neuro Speech: speech normal Gait (Neuro): normal gait Assessment & Plan Assessment/Plan (1) Choledocholithiasis: PLAN: Postop day 1 status post ERCP with stone removal and bilateral stent placement. She is awaiting cholecystectomy. Patient is doing well we will continue to follow. Charges/Coding Visit Charges Inpatient E&M: 31105 Subs Hosp L2
--- NOTE | 2021-06-22 11:40 | PN.SURG_ITS ---
Subjective Subjective Patient states still occasionally has right upper quadrant pain. Patient did have a reaction to the oxycodone with nausea. Objective Data Objective Data Vital Signs: Vital Signs Temp Pulse Resp BP Pulse Ox 98.0 F 73 18 141/82 H 98 06/22/21 09:12 06/22/21 09:12 06/22/21 09:12 06/22/21 09:12 06/22/21 09:12 Oxygen Delivery Method Room Air Weight: 156 lb 11.979 oz Body Mass Index (BMI) 26.9 Intake & Output: Intake and Output for Last 24 Hours 06/20/21 06/21/21 06/22/21 23:59 23:59 23:59 Intake Total 2089 Output Total 1100 / 1100 Balance 2089 906 / 906 Lab / Micro Data Result Diagrams: 06/22/21 04:52 06/22/21 04:52 Labs: Laboratory Results - last 24 hr 06/22/21 04:52: WBC 9.5, RBC 4.10 L, Hgb 12.6, Hct 37.8, MCV 92.2, MCH 30.7, MCHC 33.3, RDW Std Deviation 41.1, RDW Coeff of Jennifer 12.1, Plt Count 203, MPV 10.7, Immature Gran % (Auto) 0.300, Neut % (Auto) 73.6 H, Lymph % (Auto) 17.0 L, Pleasants % (Auto) 8.5, Eos % (Auto) 0.2, Baso % (Auto) 0.4, Absolute Neuts (auto) 7.0, Absolute Lymphs (auto) 1.62, Nucleated RBC % 0 06/22/21 04:52: Sodium 139, Potassium 3.6, Chloride 109 H, Carbon Dioxide 23.0, Anion Gap 7, BUN 5 L, Creatinine 0.56, Estim Creat Clear Calc 106.09, Est GFR (MDRD) Af Amer 149, Est GFR (MDRD) Non-Af 123, BUN/Creatinine Ratio 9.0 L, Glucose 100, Calcium 8.1 L, Total Bilirubin 1.30 H, Direct Bilirubin 0.67 H, AST 77 H, ALT 218 H, Alkaline Phosphatase 73, Total Protein 6.0 L, Albumin 2.8 L, Globulin 3.2 Micro: Microbiology 06/21/21 13:32 Nasal Secretion SARS-CoV-2 Antigen (Rapid) - Final Radiography Diagnostic Testing: Radiology Impression Gallbladder Ultrasound 06/21/21 10:51 IMPRESSION: 1. Several small gallstones Electronically Signed: Wilbur Lau MD at 13:11 EDT Reading Location ID and State: [facility] / [place] , Service support , ERCP X-Ray 06/21/21 14:01 Physical Exam Const alert, oriented x3 and no apparent distress HEENT normocephalic and head/scalp atraumatic Resp normal respiratory effort Cardio regular rate GI soft to palpation; Negative for non-distended Palpation: tender epigastric and RUQ; Negative for guarding Extremity no clubbing, cyanosis or edema Neuro CN's II-XII intact bilaterally Psych mental status grossly normal Assessment & Plan Assessment/Plan (1) Cholelithiasis: (2) S/P ERCP: PLAN: Status post ERCP with Dr. Archibald yesterday. Stent was placed. Reviewed the anatomy with the patient and discussed the procedure: laparoscopic cholecystectomy with possible cholangiograms, possible open. Review risks including but not limited to bleeding, infection, hernia, bile leak, retained gallstones requiring another procedure ERCP- Endoscopic Retrograde Cholangiopancreatography, injury to another organ (bile ducts, common bile duct, small bowel, etc.) and conversion to an open procedure. All questions were answered. Apple Castillo M.D. Pager: [phone] [facility] [address] [place] [address], [address] [place] [id number] Office: [phone]
--- NOTE | 2021-06-22 14:15 | GALL_PTH ---
PATIENT: IRIS BANUELOS LOC: MS3 U#:[id number] AGE/SX: 50/F ROOM: [facility] [place] RE06/21/[address]: Dr. Apple Castillo MD : 1970 BED: 1 DIS: 06/23/2021 SPEC #: [id number] RECD: 06/23/21 10:25 STATUS: LES REDMOND #: [id number] ZENAIDA: 06/22/21 14:[address]: Apple Castillo DEPT: SURGICAL PATHOLOGY RECD BY: Racheal Torres ENTERED: 06/23/21 11:58 SP TYPE: LORI ROBERTS DR: Dr. Eduardo Moulton MD Tissues: Gallbladder, NOS Procedures: Surgery Specimen Level III HEADER OPERATION: Laparoscopic cholecystectomy with IOC PRE-OP DIAGNOSIS: Cholelithiasis, choledocholithiasis, biliary obstruction TISSUE SUBMITTED: Gallbladder MICROSCOPIC DIAGNOSIS Gallbladder, cholecystectomy: Cholesterolosis, chronic cholecystitis and cholelithiasis. AM:gwyn 06/24/2021 MICROSCOPIC DESCRIPTION Slides are reviewed. GROSS DESCRIPTION Received is one container labeled with the patient's name and designated gallbladder. The specimen consists of a gallbladder measuring 9 x 3.3 x 2.8 cm. The external surface is smooth and glistening. Focally, it is granular, hemorrhagic and contains cautery artifact. The lumen of the gallbladder contains yellow-green mucoid bile and multiple mulberry-shaped yellow calculi ranging in size from 0.1 to 0.5 cm in greatest dimension. The mucosa is bile-stained and without any mass lesions. The gallbladder wall averages 0.2 cm in thickness and is free of mass lesions. Brim Stiffener sections of the gallbladder and the cystic duct at margin of resection are submitted in one cassette. / AM:gwyn 06/23/2021 TC:3 CPT: 07262
--- NOTE | 2021-06-22 15:00 | NURSING ---
Patient left unit to OR
--- NOTE | 2021-06-22 15:55 | RAD_ITS ---
History: Abdominal pain Operative cholangiogram: Findings: Contrast injected into the cystic duct at the time of cholecystectomy demonstrates 3 filling defects within the proximal portion of the common hepatic duct at the hanna hepatis consistent with stones. There is only filling of the right intrahepatic biliary tree. Endo biliary stent catheter is in place. No obstruction of the distal portion of the common bile duct. There is also a stent within the proximal portion of the pancreatic duct. Multiple fluoroscopic cine images are reviewed. 1.9mGy exposure. IMPRESSION: Choledocholithiasis. at 1640 Reported and signed by: Dash Mahajan MD Electronically Signed: Dash Mahajan MD at 16:39 EDT , RAD/Cholangiogram/ O R,Initial
[2021-06-22] MEDS: Bupivacaine 0.5% PF 10 ML VIAL (16:46)
--- NOTE | 2021-06-22 16:52 | OP.PCM_ITS ---
Report of Operation Date of Procedure: 06/22/21 Surgeon: Apple Castillo Anesthesiologist: Bolivar Connell Special Medications: cipro 400mg IV q12, flagyl 500mg IV q8h Specimen's removed: gallbladder & stones Estimated Blood Loss (mL): 10 cc Description of Procedure: Indications: this is a 50 year-old female who developed abdominal pain/nausea/vomiting and on workup was found to have elevated liver functions, choledocholithiasis status post ERCP, cholelithiasis. Laparoscopic cholecystectomy was elected. Description procedure: The patient was placed on operating table in supine position. A timeout was completed verifying correct patient, procedure, site, position and special equipment prior to beginning procedure. General Anesthesia was induced. The abdomen was prepped and draped in usual sterile fashion. An incision was made in the natural skin line below the umbilicus. The fascia was elevated and incised. The peritoneum was elevated and incised. Entry into the peritoneum was confirmed visually and no bowel was noted in the vicinity of the incision. Cazares trocar was placed. The abdomen was insufflated with carbon dioxide to a pressure of 12-15 mmHg. Patient tolerated insufflation well. The laparoscope was then inserted and abdomen inspected. No injuries from initial trocar placement were noted. Additional trochars were then inserted in the following locations 5 mm trocar in the epigastrium and 2 more 5 mm trochars along the right costal margin. The abdomen was inspected no abnormalities were found. The table is placed in reverse Trendelenburg position with the right side up. The adhesions between the gallbladder and omentum were lysed sharply. The dome of the gallbladder was grasped with atraumatic grasper passed through the lateral port and retracted over the dome of the liver. Infundibulum was then grasped with atraumatic grasper through the midclavicular port and retracted to the right lower quadrant. This maneuver exposed Calot's triangle. The peritoneum overlying the gallbladder infundibulum was then incised and cystic duct and artery identified and circumferentially dissected. Rolle catheter was used for cholangiograms. The cholangiogram showed good filling of the common bile duct-with biliary and pancreatic stent in place- into the duodenum with no filling defects, good filling of the right bile duct, due to CBD stent unable to fill left-3 ?air bubbles. The cystic duct and artery were then doubly clipped and divided close to the gallbladder. The gallbladder then dissected from its peritoneal attachments by electro cautery. Hemostasis was checked and the gallbladder and contained stones were removed using the endoscopic retrieval bag through the umbilical port. The gallbladder is passed off table as specimen. The gallbladder fossa was irrigated with saline and hemostasis obtained. There is no evidence of bleeding from the gallbladder fossa or cystic artery leakage of bile from the cystic duct stump. Secondary trochars removed under direct vision. No bleeding was noted the trocar sites. The laparoscope was withdrawn and umbilical trocar removed. The abdomen was allowed to collapse. The fascia of the 12 mm trocar was closed with a [id number] 0 Vicryl suture. The skin was closed with sutures of 4-0 Monocryl and Steri-Strips. The patient was extubated. The patient tolerated procedure well and was taken to the postanesthesia care unit in stable condition. Complications none
--- NOTE | 2021-06-22 16:56 | EX.PCM.DISCH ---
Discharge Instructions Procedure Narrative: Status post ERCP and laparoscopic cholecystectomy Diet Discharge Diet: Light diet - advance as tolerated Activity Discharge Activity: May Not Drive (while taking narcotic pain medications.) May shower in (days): 1 Lifting Restrictions: no lifting >20 lbs x 2 wks, no strenuous exercise for 4 wks Dressing / Incision Call your doctor if your incision/area has: Continuous Slow Oozing, Sudden Increased Bleeding, Increased Pain/ Swelling, Increased Redness, Foul Smelling Discharge and Swelling at the incision site Call your doctor if you observe: Fever of 101 or Higher Remove Dressing in: 2 days Cleanse incision/area with: Soap & Water Additional Dressing/Incision Instructions:: Steri-Strips will fall off in 7 to 10 days, if they do not fall off okay to remove after 10 days. Follow Up Care Please Follow Up With: Apple Castillo MD When: Call the office for a follow-up appointment 2 weeks; after 5 PM and on the weekends call [phone] with any concerns. Test Results: Test results from this visit will be discussed in further detail at your follow-up appointment, if applicable. Discharge Plan Admission Admit Date/Time: 06/21/21 13:23 Attending Provider: Apple Castillo Primary Care Provider: Darius Moulton Instructions Additional Instructions / Restrictions: Okay to take ibuprofen 400-600 mg PO q6hr PRN along with the tramadol. And okay to take Tylenol 650 mg p.o. every 6 hours as needed with tramadol Take all pain meds with food. Tramadol can cause constipation recommend taking daily stool softener (i.e. Colace/docusate) while taking the pain meds. Recommend starting some MiraLAX tomorrow if no bowel movement. If still no bowel movement in 2 days recommend taking magnesium citrate half the bottle and waiting 4-6 hours if still no results take the other half the bottle. Discharge Orders/Prescriptions Prescriptions: New tramadol 50 mg tablet 50 mg PO Q4H PRN (Reason: pain) Qty: 14 RF: 0 No Action multivitamin Tablet,Chewable 1 tab DAILY RF: 0 Referrals / Follow Up: Darius Moulton MD [Primary Care Provider] - Friend,DO Marcus [STAFF PHYSICIAN] - (Follow-up in 2 weeks call for an appointment) Disposition Disposition (needs filled in before D/C Order can be placed): Home, Self Care
[2021-06-22] MEDS: Ketorolac 15 MG/ML Vial IV (17:59)
[2021-06-23] VITALS: BP 134/88; PULSE 84; RESP 18; TEMP 37.2; O2SAT 97
[2021-06-23] MEDS: Lactated Ringers 1,000 ML 120 ML IV (02:46)
[2021-06-23 05:00] VITALS: BP 140/93; PULSE 82; RESP 16; TEMP 37.2; O2SAT 99
[2021-06-23] MEDS: metroNIDAZOLE 500 MG/100 ML BAG 100 MG IV (05:03)
[2021-06-23] MEDS: traMADol 50 MG Tablet PO (05:09)
--- NOTE | 2021-06-23 07:56 | PCM.PN.SRG ---
Subjective Subjective Patient did need to be cath last night, is able to void some but does not believe she is fully emptying currently. Tolerating clears Objective Data Objective Data Vital Signs: Vital Signs Temp Pulse Resp BP Pulse Ox 99.0 F 82 16 140/93 H 99 06/23/21 05:00 06/23/21 05:00 06/23/21 05:00 06/23/21 05:00 06/23/21 05:00 Oxygen Delivery Method Room Air Weight: 156 lb 11.979 oz Body Mass Index (BMI) 26.7 Intake & Output: Intake and Output for Last 24 Hours 06/21/21 06/22/21 06/23/21 23:59 23:59 23:59 Intake Total 2090 / 2090 3220 / 3420 958 / 958 Output Total 1700 / 3500 3650 / 3650 Balance 2090 / 1590 1520 / -80 -2692 / -2692 Lab / Micro Data Result Diagrams: 06/22/21 04:52 06/22/21 04:52 Micro: Microbiology 06/21/21 13:32 Nasal Secretion SARS-CoV-2 Antigen (Rapid) - Final Radiography Diagnostic Testing: Radiology Impression Cholangiogram 06/22/21 15:55 Physical Exam Resp normal respiratory effort Cardio regular rate GI GI Narrative: Abdomen: Soft, nondistended, tender near incision's dressed clean dry and intact, no peritoneal signs Assessment & Plan Assessment/Plan (1) S/P laparoscopic cholecystectomy: (2) S/P ERCP: PLAN: Patient is tolerating clears will advance to regular diet. Currently voiding does not feel like she completely empties, will continue to monitor. And tolerates regular and voiding improves will DC home Apple Castillo M.D. Pager: [phone] [facility] [address] [place] [address], [facility], [address] [place] [address] Office: [phone]
[2021-06-23] MEDS: Ciprofloxacin 400 MG/200 ML BAG 100 MG IV (09:13)
[2021-06-23 09:33] VITALS: BP 136/89; PULSE 52; RESP 14; TEMP 36.7; O2SAT 95
== END 2021-06-23 12:54 | disposition home or self-care (01) ==
LOC: ED 13:51 → MS3 14:33
PROVIDERS: Internal Medicine Gastroenterology; Admitting Provider Surgery; Emergency Provider Student in an Organized Health Care Education/Training Program; PCP Family Medicine; Visit Provider Surgery
PROC: (CPT 43260; principal; 2021-06-21 14:00)
DX: K80.64 Calculus of gallbladder and bile duct with chronic cholecystitis without obstruction (principal); T40.2X5A Adverse effect of other opioids, initial encounter; R74.01 Elevation of levels of liver transaminase levels; R11.0 Nausea
CPT/HCPCS: 47562; 43264; 43274 ×2; 00790; 36415; 74300; 74328; 76000; 76705; 80048; 80076; 81001; 81025; 83690; 85025; 87811; 88304; 93005; 96361; 96365; 96366; 96367; 96375; 96376; 99218; 99285; J7030; J7120; A4216; C1769; G0378; J0744; J2405

== ENCOUNTER 2021-07-16 07:28 | Emergency (ER) | payer BC, SELFPAY ==
[2021-07-16 07:29] VITALS: BP 127/86; PULSE 87; RESP 14; TEMP 36.1; O2SAT 100; BMI 25.7
--- NOTE | 2021-07-16 07:44 | US_ITS ---
STUDY: ABDOMINAL ULTRASOUND - RIGHT UPPER QUADRANT REASON FOR VISIT: Female, 50 years old right upper quadrant pain. TECHNIQUE: Ultrasound evaluation of the right upper quadrant was performed with real-time and static samuel-scale imaging. TECHNICAL QUALITY: Adequate. COMPARISON: Comparison is made with prior study dated 06/21/2021. FINDINGS: Liver: The liver measures 15.6 cm. There is normal echogenicity of the liver. The bile ducts are within normal limits. There is hepatic color flow. The direction of portal flow is hepatopetal. There is no demonstrated mass lesion. Gallbladder: The patient is status post cholecystectomy. Common Bile Duct (C.B.D.): The common bile duct measures 5 mm. Common bile duct stent is seen in position. Pancreas: Normal size of the head, body and tail of the pancreas. There is normal echogenicity of the pancreas. There is no demonstrated pancreatic mass or cyst. Right Kidney: Normal size of the right kidney. The right kidney measures 10.6 cm x 5.5 cm x 5.2 cm. Normal renal cortex. The right cortex measures 2.1 cm. There is no demonstrated renal mass or cyst. There is minimal dilatation of the right renal pelvis. US/Abdomen Limited IMPRESSION: Status post cholecystectomy. Common bile duct stent is visualized. Electronically Signed: Richard Love MD at 9:59 EDT ,
--- NOTE | 2021-07-16 07:44 | ED.VIS.GI ---
HPI HPI - GI History of Present Illness Chief Complaint: Abd Pain Informant: patient Abdominal Pain/Flank Pain Onset: Days (2-3) Context: Gradual Onset Timing: Continuous Quality: Aching Location: RUQ and Right Flank Current Severity: Moderate Maximum Severity: Moderate Worsened by: Nothing; Not Worsened By Food Relieved by: Nothing Nausea/Vomiting/Emesis GI Symptom: Negative for Nausea and Vomiting Diarrhea/Melena/Hematochezia GI Symptom: Negative for Diarrhea, Melena and Hematochezia Associated Symptoms Associated Symptoms: Negative for Dysuria, Frequency and Hematuria Narrative Narrative: Patient presenting with the same symptoms that resulted in an ERCP and a laparoscopic cholecystectomy almost 1 month ago. She states the pain went away after all of that and she seemed to recover, and now the pain has come back for the last couple days. She denies any other new symptoms such as jaundice, fevers, nausea, bright red blood per rectum or melena. No trouble urinating. No coughing or trouble breathing. She states a stent was put in her bile duct. PFSH PFSH Medical History Biliary obstruction Home Medications multivitamin 1 tab DAILY 06/21/21 [History Last Taken Unknown] tramadol 50 mg PO Q4H PRN #14 tab 06/22/21 [Rx Last Taken Unknown] tamsulosin 0.4 mg capsule 0.4 mg PO QHS #14 cap 06/24/21 [Rx Last Taken Unknown] tramadol 50 mg PO Q4H PRN PRN 3 Days #15 tab 07/16/21 [Rx Last Taken Unknown] Allergy/AdvReac Type Severity Reaction Status Date / Time Penicillins Allergy Hives Verified 07/16/21 07:31 Family History Mother No problems noted. Surgical History H/O abdominoplasty History of salpingectomy S/P ERCP S/P laparoscopic cholecystectomy Social History Smoking Status: Never smoker ROS ROS ED Constitutional Constitutional ED: Denies chills or fever(s) Eyes Eyes: Denies change in vision or diplopia ENT ENT ED: Denies rhinorrhea or sore throat Cardiovascular Cardiovascular: Denies chest pain or palpitations Respiratory/Chest Respiratory/Chest: Denies cough or dyspnea Gastrointestinal Gastrointestinal: Reports abdominal pain; Denies diarrhea, nausea or vomiting Genitourinary Genitourinary ED: Reports flank pain; Denies dysuria, hematuria or low back pain Musculoskeletal Musculoskeletal: Denies back pain or neck pain Integumentary Denies abscess or rash Neurologic Neurologic: Denies headache(s), paresthesias or weakness Psychiatric Psychiatric: Denies anxiety or suicidal thoughts EXAM Physical Exam Const Vital Signs: 07/16/21 07:29 Temperature 97.0 F L Temperature Source Temporal Pulse Rate 87 Respiratory Rate 14 Blood Pressure 127/86 H Blood Pressure Mean 99 Pulse Ox 100 Oxygen Delivery Method Room Air Positive well nourished and well developed General Appearance ED: well developed and NAD HEENT Reports moist mucous membranes normocephalic and atraumatic Eyes PERRL and EOMs intact bilaterally Neck full ROM and supple Resp normal respiratory effort and clear to auscultation bilaterally Cardio regular rate, regular rhythm and no murmurs GI non-distended GI Narrative: Mildly tender right lateral subcostal flank and right upper quadrant, no guarding or rebound tenderness. No other areas of abdominal tenderness. No palpable mass. Auscultation: normoactive bowel sounds Palpation: soft Back/Spine no CVA tenderness General Back: other FROM Extremity normal to inspection General Extremety ED: Negative for edema, pulses abnormal or tenderness General Extremity: Negative for edema or pulses abnormal Neuro oriented x3, CN's II-XII intact bilaterally and no sensory deficits noted Sensorium / Orientation: awake and alert Motor Exam: strength 5/5 throughout Skin no rashes or lesions noted and no wounds MDM MDM MDM Narrative Medical decision making narrative: Ultrasound shows patent stents without any other acute abnormalities, blood work including bilirubin all normal. She does have a slight elevation of her AST which is nonspecific. I discussed with both doctors Sharif and [place]. Essentially, she did have biliary obstruction with a stone that was visualized during ERCP and removed. She could have another hepatic stone that could be in where the stent is but it is not obstructing since she has normal bilirubin, and she could also be having pain from simply the stent. Regardless at this time it would be reasonable to treat her pain, and have her follow-up with Dr. Archibald in 5-7 days if she continues to have pain, she is comfortable with that overall plan. Lab Data Attestation: I reviewed the patient's lab results. Labs: Laboratory Results - last 24 hr 07/16/21 07/16/21 07:50 07:50 WBC 5.5 RBC 4.51 Hgb 13.9 Hct 42.3 MCV 93.8 MCH 30.8 MCHC 32.9 RDW Std Deviation 41.7 RDW Coeff of Jennifer 11.9 Plt Count 209 MPV 10.7 Immature Gran % (Auto) 0.200 Neut % (Auto) 58.9 Lymph % (Auto) 29.7 [place] % (Auto) 7.8 Eos % (Auto) 2.9 Baso % (Auto) 0.5 Absolute Neuts (auto) 3.3 Absolute Lymphs (auto) 1.64 Nucleated RBC % 0 Sodium 140 Potassium 4.2 Chloride 106 Carbon Dioxide 30.0 Anion Gap 4 L BUN 5 L Creatinine 0.85 Estim Creat Clear Calc 66.96 Est GFR (MDRD) Af Amer 91 Est GFR (MDRD) Non-Af 75 BUN/Creatinine Ratio 5.9 L Glucose 88 Calcium 9.1 Total Bilirubin 0.40 AST 85 H ALT 36 Alkaline Phosphatase 40 L Total Protein 7.1 Albumin 3.3 Globulin 3.8 Albumin/Globulin Ratio 0.9 Lipase 188 Radiography Diagnostic Testing: Clinical Impression(s) from Imaging Studies Abdomen Ultrasound 07/16/21 07:44 IMPRESSION: Status post cholecystectomy. Common bile duct stent is visualized. Electronically Signed: Richard Love MD at 9:59 EDT , Discharge Plan Triage Chief Complaint: Abd Pain ED Provider: Ian Mahoney Dx/Rx/DC Orders Clinical Impression: Abdominal pain, RUQ, S/P ERCP Instructions: Abdominal Pain Prescriptions: New tramadol 50 MG tablet 50 mg PO Q4H PRN PRN (Reason: Pain) 3 Days Qty: 15 RF: 0 No Action tamsulosin [Flomax] 0.4 mg capsule 0.4 mg PO QHS Qty: 14 RF: 0 multivitamin Tablet,Chewable 1 tab DAILY RF: 0 tramadol 50 mg tablet 50 mg PO Q4H PRN (Reason: pain) Qty: 14 RF: 0 Primary Care Provider: Darius Moulton Referrals: Darius Moluton MD [Primary Care Provider] - Friend,DO Marcus [STAFF PHYSICIAN] - 5-7 Days (if pain persistent) Disposition Disposition: Home, Self Care
[2021-07-16 08:00] LABS: Absolute Lymphocyte Count 1.64 X10^3/uL (0.83-4.51); Absolute Neutrophil Count 3.3 X10^3/uL (2.0-7.7); Basophil# 0.03 X10^3/uL; Basophil% 0.5 % (0-1); Eosinophil# 0.16 X10^3/uL; Eosinophils% 2.9 % (0-5); Hematocrit 42.3 % (37-47); Hemoglobin 13.9 g/dL (12.0-15.0); Lymphocyte # 1.64 X10^3/ul (0.83-4.51); Lymphocyte % 29.7 % (19-41); Mean Corp Hgb Conc 32.9 g/dL (32-36); Mean Corpuscular Hgb 30.8 pg (27.0-32.0); Mean Corpuscular Volume 93.8 fL (81-99); Mean Platelet Vol. 10.7 fl (6.2-12.0); Monocyte# 0.43 X10^3/uL; Monocyte% 7.8 % (0-10); NRBC Flagged by Analyzer 0 % (0-5); Neutrophil # 3.26 X10^3/uL (2.7-7.7); Neutrophil % 58.9 % (47-70); Platelet Count 209 K/mm3 (150-450); RBC Distribution Width CV 11.9 % (11.6-14.6); RBC Distribution Width SD 41.7 fl (35.1-43.9); Red Blood Count 4.51 M/mm3 (4.2-5.4); White Blood Count 5.5 K/mm3 (4.4-11.0)
[2021-07-16] MEDS: Ketorolac 30 MG/ML Syringe 15 MG IV (08:14)
[2021-07-16 08:16] LABS: ALB/GLOB Ratio 0.9 RATIO (0.9-2.4); AST(SGOT) 85 U/L (15-37); Alanine Aminotransfer ALT/SGPT 36 U/L (13-56); Albumin, Serum 3.3 g/dL (3.2-5.0); Alkaline Phosphatase 40 U/L (45-117); Anion Gap 4 (5-15); BUN 5 mg/dL (7-18); BUN/Creat Ratio 5.9 RATIO (10-20); Calcium,Total 9.1 mg/dL (8.5-10.1); Chloride 106 mmol/L (98-107); Creatinine, Serum 0.85 mg/dL (0.55-1.02); EST Glomerular Filtration Rate 75 mL/min (>60); Est Glom Filt Rate - Afr Amer 91 mL/min (>60); Estimated Creatinine Clearance 66.96 ml/min; Globulin 3.8 g/dL (2.2-4.2); Glucose 88 mg/dL (74-106); Lipase 188 U/L (73-393); Potassium 4.2 mmol/L (3.5-5.1); Protein, Total 7.1 g/dL (6.4-8.2); Sodium Level 140 mmol/L (136-145)
[2021-07-16 11:04] VITALS: BP 118/70; PULSE 67; PULSE 70; RESP 16; O2SAT 100; O2SAT 98
== END 2021-07-16 11:05 | disposition home or self-care (01) ==
PROVIDERS: Emergency Provider Emergency Medicine; PCP Family Medicine; Visit Provider Emergency Medicine
DX: R10.11 Right upper quadrant pain (principal); R11.2 Nausea with vomiting, unspecified; Z98.890 Other specified postprocedural states; Z90.49 Acquired absence of other specified parts of digestive tract
CPT/HCPCS: 76705; 80053; 83690; 85025; 96374; 99283; A4216

== ENCOUNTER 2021-10-22 10:11 | Day surgery (SDC) | payer BC, SELFPAY ==
[2021-10-22] MEDS: Lactated Ringers 1,000 ML 15 ML IV (10:20)
[2021-10-22 10:35] VITALS: BP 126/74; PULSE 71; RESP 16; TEMP 36.4; O2SAT 100; BMI 26.2
--- NOTE | 2021-10-22 12:05 | HP.PCM_ITS ---
History and Physical Date of Admission: 10/22/21 IRIS BANUELOS, is a 50 F who presents to the office today for Follow up visit. Iris established with this clinic through hospitalization with [facility]. She presented to [facility] ED 06.21.21 with right flank pain for several days that was getting progressively worse. RUQ US performed and gastroenterology was consulted 06.21.21 with ERCP performed same day. WSA was also consulted and cholecystectomy performed 06.23.21. She was discharged 06.23.21. Following discharge, she had difficulty with urinary voiding and was seen for this by A with referral to Dr. Clarke. Biochemical workup . and (06.22.21) with elevated total bilirubin 3.90 (1.30); AST 129 (77); ALT 325 (218). Lipase WNL. US RUQ 06.21.21 normal echogenicity of liver without mass. Gallbladder has several small gallstones with negative Maravilla?s sign. CBD measures 2.6mm. Pancreas WNL ERCP 06.21.21 entire main bile duct moderately dilated with stone causing obstruction; chledocholithiasis with complete removed accomplished via biliary sphincterotomy/balloon extraction; CBD dilated; temporary stent placed in CBD ([id number]) and dorsal pancreatic duct (3Fx5cm). Vanegas was present for about six days and following removal she has had no issues. Since surgery she is having issues with diarrhea about three times a day, feels this may be better since discharge. There is no issue with urgency or incontinence at this time. Would like to see if this normalizes prior to starting medications. ROS Const Constitutional: No anorexia, fatigue, fever(s), weight change or sleep problems Eyes Eyes: No change in vision ENT ENT: No abnormal hearing, difficulty swallowing, mouth lesions, tongue swelling or throat swelling Resp Respiratory: No cough or shortness of breath Cardio Cardiology: No chest pain at rest, chest pain with exertion, shortness of breath or dyspnea on exertion Gastro GI: No difficulty swallowing Genitourinary-Female: No difficulty urinating or burning urination Musc Musculoskeletal: No joint pain, joint swelling, muscle weakness or decreased muscle mass Skin Skin: No hair loss in leg, yellowing of the eye, itchy eyes, rash, skin ulcer or skin swelling Neuro Neurology: No abnormal hearing, abnormal movements, confusion, unsteady gait/b alance or memory loss Psych Psychiatric: No anxiety, No confusion and No memory loss Endo Endocrine: No fatigue or weight change Aller/Imm Allergy/Immunologic: No itchy eyes, throat swelling or tongue swelling Honorio/Lymp Hematologic/Lymphatic: No easy bleeding, easy bruising or enlarged lymph nodes Exam Const General: cooperative and comfortable Nutritional Appearance: average body habitus and well nourished HENMT Head: normal to inspection Ears: hearing grossly normal bilaterally Nose: external nose normal Face and sinus: normal facial exam Mouth: oral mucosae normal Throat: posterior oropharynx normal Eyes General: appearance normal, both eyes and all related structures Neck Neck: normal visual inspection Chest Chest palpation & inspection: normal inspection of the chest and normal palpation of entire chest wall Resp Effort & Inspection: normal respiratory effort Auscultation: Bilateral: Clear to Auscultation Cardio Palpation: normal PMI Rate: regular rate Rhythm: regular rhythm GI Inspection: normal to inspection Auscultation: normal bowel sounds Percussion: normal to percussion Palpation: no hepatosplenomegaly Skin General: no rashes or lesions noted Neuro General: patient alert Extrem General: normal to inspection Psych Affect: normal affect Quality Reporting Tobacco Screening ([facility] 138) Smoking Status: Never smoker Assessment and Plan Assessment and Plan (1) Biliary obstruction: ?Status:?Resolved ?Plan - Dr. Velazquez Friend, DO: Fluid obstruction secondary to retained gallstone.? Status post ERCP with dilation of stricture and biliary stent placement.? She is actually doing well except for diarrhea she is experiencing.? She will be given samples of probiotic.? If it does not improve after 2 weeks then we may have to introduce a fiber supplement. (2) S/P ERCP: ?Status:?Acute ?Plan - Dr. Velazquez Friend, DO: We will schedule her for removal in near future. (3) Diarrhea: ?Status:?Acute ?Plan - Dr. Velazquez Friend, DO: This is likely bile acid diarrhea.? We may have to introduce colestipol or cholestyramine in the future.? Probiotic and fiber supplementation does not help. I have re-examined the patient. There are no clinical changes since date of exam.
--- NOTE | 2021-10-22 12:28 | RAD_ITS ---
STUDY: ERCP. REASON FOR EXAM: Female, 51 years old. Stent removal. FLUOROSCOPY TIME (if supplied): ( 70.9 seconds ) minutes/seconds. A cine loop of 14 images was submitted. TECHNIQUE: ERCP was performed by the alcohol still operator. Imaging was obtained. COMPARISON: Comparison is made with prior study dated 06/22/2021. FINDINGS: ERCP was performed. No filling defects are seen on the last image. RAD/ERCP Biliary Only IMPRESSION: No intraluminal filling defects seen on the last image. Electronically Signed: Richard Love MD at 15:04 EDT ,
--- NOTE | 2021-10-22 13:01 | OP.ERCP_ITS ---
Patient Name: Kate De La Paz Procedure Date: 10/22/2021 12:04 PM Date of : 1970 Age: 51 Procedure: ERCP Indications: Biliary stent removal, Pancreatic stent removal Providers: Marcus Archibald DO Medicines: Monitored Anesthesia Care Patient Profile: This is a 51 year old female. Refer to note in patient chart for documentation of history and physical. Patient has symptoms. She is status post ERCP for biliary evaluation within the past six months. She is status post laparoscopic cholecystectomy within the past three months. Complications: No immediate complications. Procedure: Pre-Anesthesia Assessment: - Prior to the procedure, a History and Physical was performed, and patient medications and allergies were reviewed. The risks and benefits of the procedure and the sedation options and risks were discussed with the patient. All questions were answered and informed consent was obtained. Patient identification and proposed procedure were verified by the physician in the pre-procedure area. Mental Status Examination: alert and oriented. Airway Examination: normal oropharyngeal airway and neck mobility. Respiratory Examination: clear to auscultation. CV Examination: normal. Prophylactic Antibiotics: The patient does not require prophylactic antibiotics. Prior Anticoagulants: The patient has taken no previous anticoagulant or antiplatelet agents. After reviewing the risks and benefits, the patient was deemed in satisfactory condition to undergo the procedure. The anesthesia plan was to use moderate sedation / analgesia (conscious sedation). Immediately prior to administration of medications, the patient was re-assessed for adequacy to receive sedatives. The heart rate, respiratory rate, oxygen saturations, blood pressure, adequacy of pulmonary ventilation, and response to care were monitored throughout the procedure. The physical status of the patient was re-assessed after the procedure. After obtaining informed consent, the scope was passed under direct vision. Throughout the procedure, the patient's blood pressure, pulse, and oxygen saturations were monitored continuously. The Duodenoscope was introduced through the mouth, and advanced to the duodenum and used for direct visualization of the bile duct. The ERCP was accomplished without difficulty. The patient tolerated the procedure well. Scope In: 12:34:25 PM Scope Out: 12:49:13 PM Total Procedure Duration Time 0 hours 14 minutes 48 seconds Findings: The therapeutic recreation assistant film was normal. The esophagus was successfully intubated under direct vision. The scope was advanced to a normal major papilla in the descending duodenum without detailed examination of the pharynx, larynx and associated structures, and upper GI tract. The upper GI tract was grossly normal. The bile duct was deeply cannulated with the short-nosed traction sphincterotome. Contrast was injected. I personally interpreted the bile duct images. There was brisk flow of contrast through the ducts. Opacification of the main bile duct was successful. The maximum diameter of the ducts was 7 mm. The lower third of the main bile duct contained two stones, the largest of which was 6 mm in diameter. The lower third of the main bile duct was diffusely dilated, with a stone causing an obstruction. The largest diameter was 8 mm. A straight Roadrunner wire was passed into the biliary tree. A 5 mm biliary sphincterotomy was made with a traction (standard) sphincterotome using ERBE electrocautery. There was no post-sphincterotomy bleeding. The biliary tree was swept with a 15 mm balloon starting at the bifurcation. Sludge was swept from the duct. All stones were removed. Dilation of the common bile duct with a 6-7-8 mm balloon dilator was successful. One stent was removed from the biliary tree and the pancreatic duct using a snare. The stent was found to be occluded via the water column test. Impression: - The lower third of the main bile duct was dilated, with a stone causing an obstruction. - Choledocholithiasis was found. Complete removal was accomplished by biliary sphincterotomy and balloon extraction. - A biliary sphincterotomy was performed. - The biliary tree was swept. Procedure Code(s): --- Professional --- 57390, 59, Endoscopic retrograde cholangiopancreatography (ERCP); with trans-endoscopic balloon dilation of biliary/pancreatic duct(s) or of ampulla (sphincteroplasty), including sphincterotomy, when performed, each duct 33396, 51, Endoscopic retrograde cholangiopancreatography (ERCP); with removal of foreign body(s) or stent(s) from biliary/pancreatic duct(s) 35870, Endoscopic retrograde cholangiopancreatography (ERCP); with removal of calculi/debris from biliary/pancreatic duct(s) 20858, 26, Endoscopic catheterization of the biliary ductal system, radiological supervision and interpretation CPT copyright 2017 [employer]. All rights reserved. The codes documented in this report are preliminary and upon head machine feeder review may be revised to meet current compliance requirements. Marcus Archibald DO 10/22/2021 1:01:18 PM This report has been signed electronically. Number of Addenda: 0 Note Initiated On: 10/22/2021 12:04 PM
--- NOTE | 2021-10-22 13:02 | OP.CCLET_ITS ---
10/22/2021 Darius Moulton [address] [place] [address] Re : ERCP procedure for Kate De La Paz Dear Dr. Moulton This procedure was performed on October. My impressions and recommendations are as follows: Impressions : - The lower third of the main bile duct was dilated, with a stone causing an obstruction. - Choledocholithiasis was found. Complete removal was accomplished by biliary sphincterotomy and balloon extraction. - A biliary sphincterotomy was performed. - The biliary tree was swept. Recommendations : My findings are described in the full procedure note, which is enclosed. If I can be of further assistance, please feel free to contact me at . Sincerely, Marcus Archibald, 10/22/2021 1:01:18 PM This report has been signed electronically.
[2021-10-22 13:04] VITALS: BP 118/79; BP 126/74; PULSE 86; RESP 16; TEMP 36.1; O2SAT 100
[2021-10-22 13:15] VITALS: BP 114/84; BP 126/74; PULSE 82; RESP 16; O2SAT 100
[2021-10-22 13:30] VITALS: BP 126/74; BP 130/86; PULSE 76; RESP 16; TEMP 36.3; O2SAT 97
[2021-10-22 14:03] VITALS: BP 126/74
== END 2021-10-22 14:07 | disposition home or self-care (01) ==
LOC: EN 10:11 → AC 10:12
PROVIDERS: PCP Family Medicine; Referring Provider Family Medicine; Visit Provider Internal Medicine Gastroenterology
PROC: (CPT 43260; principal; 2021-10-22 11:10)
DX: K80.51 Calculus of bile duct without cholangitis or cholecystitis with obstruction (principal); R19.7 Diarrhea, unspecified
CPT/HCPCS: 43264; 43275; 74328; 76000; J7120; J2405

== ENCOUNTER 2021-12-08 09:00 | Outpatient (RCR) | payer BC, SELFPAY ==
--- NOTE | 2021-10-16 10:58 | HP.PTEVAL ---
Patient's Visit Information IRIS BANUELOS is a 51 year old F referred to Physical Therapy by Dr. Darius Moulton MD with a diagnosis of R shoulder sub acromial bursitis. Date of Evaluation: 10/16/21 Physical Therapist: Marquez Zambrano, PT, ATC - Visit Plan Frequency: 2-3x /Week Duration: 4-6 Weeks Plan: R shoulder rot cuff strengthening, scap stab ex's, UBE, and HEP - Subjective Pt reports she injured her R shoulder approximately 3 months ago. Pt reports she was performing lat pulldowns with the bar behind her head when she experienced a pain. Pt reports the pain has progressively worsened over this time span. Pt reports she has gotten to the point where she is unable to sleep comfortably secondary to pain. Pt is L hand dominant. Pt denies any tingling or numbness in R UE. Pt denies any popping/clicking/locking up in R shoulder. Pt reports reaching behind her back, reaching overhead, trying to throw a ball, and donning/doffing her elo is very difficult. Pt reports she also likes to golf and is unable to secondary to pain. Pt reports no recent Dx tests at this time. 4/10 pain at rest, 8/10 pain at worst - Pain R shoulder Pain Intensity (Out of 10): 4 Pain Intensity Range: 8 - Objective Neuro: B UE sensation is WNL to light touch. B biceps reflex= 2/3. Palpation: Pt is sore near the infraspinatus muscle region of the R shoulder. No obvious deformity at this time. ROM: L shoulder flex= 180, abd= 180, ER= 80, IR WNL; R shoulder flex= 105, abd= 125, ER= 45, IR moderately limited. MMT: L shoulder flex= 13, abd= 20, ER= 15, IR= 17; R shoulder flex= 11, abd= 18, ER= 13, IR= 10. Special tests: pos empty can, pos HK test, pos apprehension test - Balance/Special Test Scores Quick DASH Score: 47.7250 - Goals Goal 1:: Decrease R shoulder pain x 50% to aid with sleep Goal Time Frame: 4-6 Weeks Goal 2:: Increase R shoulder flex and abd ROM x 30 degrees to aid with overhead lifting Goal Time Frame: 4-6 Weeks Goal 3:: Increase R shoulder strength x 5#F to aid with IADL's Goal Time Frame: 4-6 Weeks Goal 4:: I with HEP Goal Time Frame: 4-6 Weeks - Rehabilitation Potential Physical Therapy Diagnosis: Pt has R shoulder pain, weakness, and limited ROM secondary to subacromial bursitis Rehabilitation Potential: Good - Anticipated Interventions Patient/Client Instruction: Educate patient on: Condition, Plan of Care For the Purpose of:: To improve self management Therapeutic Exercise to Include: Strength training, Endurance training, Active ROM, Scapular Strength/Stabilization For the Purpose of:: To decrease pain, To increase ROM, To improve muscle performance and motor function Cryotherapy (ice pack, ice massage): Yes For the Purpose of:: To decrease pain Thank you for the opportunity to evaluate your patient. For Medicare and Medicare HMO plans, please review the plan of care and approve it. It will need to be FAXED BACK to us at [phone] for Medicare purposes. For Medicare only, by signing this I certify the plan of care. Please let me know if there are questions or concerns regarding this plan of care. Physician Signature: Date:
--- NOTE | 2021-12-08 09:25 | HP.PTREVAL ---
Dr. Darius Moulton MD, It has been my pleasure to treat IRIS BANUELOS over the last 12 visits for R shoulder sub acromial bursitis. Please see the progress note below for an update on the physical therapy plan of care! Subjective: Some days I am good, some days I am not Objective/Function: R shoulder MMT: flex= 15, abd= 21, ER= 16, IR= 19 #F. R shoulder ROM: flex= 165, abd= 160 degrees. R shoulder pain 2/10. Pt is making excellent progress toward Rx goals Plan Plan: Cont with HEP, re-assess in one month Balance/Gait/Functional tests - Balance/Special Test Scores Quick DASH Score: 34.0900 Goals Goal 1:: Decrease R shoulder pain x 50% to aid with sleep Goal Time Frame: 4-6 Weeks Goal Progress: Progressing Goal 2:: Increase R shoulder flex and abd ROM x 30 degrees to aid with overhead lifting Goal Time Frame: 4-6 Weeks Goal Progress: Goal Met Goal 3:: Increase R shoulder strength x 5#F to aid with IADL's Goal Time Frame: 4-6 Weeks Goal Progress: Progressing Goal 4:: I with HEP Goal Time Frame: 4-6 Weeks Goal Progress: Goal Met Anticipated Interventions Patient/Client Instruction: Educate patient on: Condition, Plan of Care For the Purpose of:: To improve self management Therapeutic Exercise to Include: Strength training, Endurance training, Active ROM, Scapular Strength/Stabilization For the Purpose of:: To decrease pain, To increase ROM, To improve muscle performance and motor function Cryotherapy (ice pack, ice massage): Yes For the Purpose of:: To decrease pain Please do not hesitate to contact me at [phone] by phone or if you have questions or concerns regarding this new plan of care! Sincerely, Marquez Zambrano, PT, ATC
--- NOTE | 2022-02-10 13:55 | HP.PT.NRP ---
IRIS BANUELOS was seen in my office for initial evaluation on 10/16/21. The following Plan of Care was established for this patient: Initial Frequency: 2-3x /Week Initial Duration: 4-6 Weeks Patient/Client Instruction: Educate patient on: Condition, Plan of Care For the Purpose of:: To improve self management Therapeutic Exercise to Include: Strength training, Endurance training, Active ROM, Scapular Strength/Stabilization For the Purpose of:: To decrease pain, To increase ROM, To improve muscle performance and motor function Cryotherapy (ice pack, ice massage): Yes For the Purpose of:: To decrease pain This patient was last seen in our office . Pertinent comments regarding their Physical therapy will appear below: Pt was treated for R shoulder pain for 12 PT visits through the date of 12/08/21. Pt has not returned through todays date, and is discontinued at this time At this point I will be discontinuing this patient from physical therapy. I would be happy to see this patient again in the future if found appropriate by the physician. Thank you! Marquez Zambrano, PT, ATC Balance/Gait/Functional tests - Balance/Special Test Scores Quick DASH Score: [phone]
== END 2021-12-08 19:00 | disposition home or self-care (01) ==
LOC: PT 09:00
PROVIDERS: PCP Family Medicine; Referring Provider Family Medicine; Visit Provider Family Medicine
DX: M75.51 Bursitis of right shoulder (principal); S46.811D Strain of other muscles, fascia and tendons at shoulder and upper arm level, right arm, subsequent encounter; X58.XXXD Exposure to other specified factors, subsequent encounter; S29.012D Strain of muscle and tendon of back wall of thorax, subsequent encounter
CPT/HCPCS: 97110; 97140; 97161; 97164

== ENCOUNTER → 2021-12-28 | Outpatient (CLI) | payer BC, SELFPAY ==
--- NOTE | 2021-12-28 11:35 | RAD_ITS ---
EXAM: XR RIGHT SHOULDER COMPLETE, 2 OR MORE VIEWS CLINICAL INDICATION: SUBACROMIAL BURSITIS TECHNIQUE: Two or more views of the right shoulder. This report was created using [employer] report generation technology. COMPARISON: None. FINDINGS: BONES/JOINTS: Unremarkable. No acute fracture. No subluxation. Normal alignment. Preservation of the joint space. No sclerotic or destructive changes observed. SOFT TISSUES: Unremarkable. No soft tissue swelling or gas. No radiopaque foreign body. RAD/Shoulder min 2 Views IMPRESSION: Negative right shoulder x-rays. Electronically Signed: Sancho Rock MD at 21:11 EDT ,
== END | disposition home or self-care (01) ==
PROVIDERS: PCP Family Medicine; Visit Provider Family Medicine
DX: M75.51 Bursitis of right shoulder (principal)
CPT/HCPCS: 73030

== ENCOUNTER → 2022-05-03 | Outpatient (CLI) | payer BC, SELFPAY ==
--- NOTE | 2022-05-03 09:53 | RAD_ITS ---
STUDY: X-RAY CHEST REASON FOR EXAM: Female, 51 years old. Cough. TECHNIQUE: Frontal and lateral views of the chest. COMPARISON: August 2019. FINDINGS: The lungs are clear and expanded. There is no demonstrated pleural abnormality. Normal size heart. Normal mediastinum and shashank. Normal visualized pulmonary arteries. Normal visualized aortic arch and descending thoracic aorta. Stable mild diffuse thoracic spondylosis. Normal visualized ribs, clavicles, and shoulders. There is no demonstrated abnormality of the visualized soft tissue structures of the upper abdomen. RAD/Chest PA and Lateral IMPRESSION: No interval change and no acute or active cardiopulmonary disease. Electronically Signed: Franklin Shipley, at 10:36 EST ,
== END | disposition home or self-care (01) ==
LOC: MTRAD 09:52
PROVIDERS: PCP Family Medicine; Visit Provider Family Medicine
DX: R05.9 Cough, unspecified (principal)
CPT/HCPCS: 71046

== ENCOUNTER → 2023-06-27 | Outpatient (CLI) | payer BC, SELFPAY ==
[2023-06-27 17:27] LABS: Absolute Neutrophil Count 3.4 X10^3/uL (2.0-7.7); Basophil# 0.05 X10^3/uL; Basophil% 0.8 % (0-1); Eosinophil# 0.09 X10^3/uL; Eosinophils% 1.5 % (0-5); Hematocrit 40.3 % (37-47); Hemoglobin 13.1 g/dL (12.0-15.0); Lymphocyte % 33.3 % (19-41); Mean Corp Hgb Conc 32.5 g/dL (32-36); Mean Corpuscular Hgb 30.3 pg (27.0-32.0); Mean Corpuscular Volume 93.3 fL (81-99); Mean Platelet Vol. 10.1 fl (6.2-12.0); Monocyte% 8.3 % (0-10); NRBC Flagged by Analyzer 0 % (0-5); Neutrophil # 3.36 X10^3/uL (2.7-7.7); Neutrophil % 55.9 % (47-70); Platelet Count 225 K/mm3 (150-450); RBC Distribution Width CV 12.2 % (11.6-14.6); RBC Distribution Width SD 42.5 fl (35.1-43.9); Red Blood Count 4.32 M/mm3 (4.2-5.4)
[2023-06-27 17:47] LABS: Erythrocyte Sedimentation Rate 4 mm/hr (0-30)
[2023-06-27 18:01] LABS: AST(SGOT) 14 U/L (15-37); Alanine Aminotransfer ALT/SGPT 22 U/L (13-56); Albumin, Serum 3.5 g/dL (3.2-5.0); Alkaline Phosphatase 35 U/L (45-117); Anion Gap 2 (5-15); BUN 9 mg/dL (7-18); BUN/Creat Ratio 12.1 RATIO (10-20); CRP < 2.90 mg/L (0.0-3.0); Calcium,Total 8.7 mg/dL (8.5-10.1); Chloride 108 mmol/L (98-107); Creatinine, Serum 0.74 mg/dL (0.55-1.02); EST Glomerular Filtration Rate 88 mL/min (>60); Est Glom Filt Rate - Afr Amer 106 mL/min (>60); Globulin 3.5 g/dL (2.2-4.2); Glucose 87 mg/dL (74-106); Potassium 3.9 mmol/L (3.5-5.1); Sodium Level 139 mmol/L (136-145)
== END | disposition home or self-care (01) ==
LOC: MTLAB 15:48
PROVIDERS: PCP Family Medicine; Referring Provider Internal Medicine Gastroenterology; Visit Provider Internal Medicine Gastroenterology
DX: R10.11 Right upper quadrant pain (principal)
CPT/HCPCS: 36415; 80053; 85025; 85652; 86140

== ENCOUNTER → 2023-07-05 | Outpatient (CLI) | payer BC, SELFPAY ==
--- NOTE | 2023-07-05 08:38 | US_ITS ---
STUDY: ABDOMINAL ULTRASOUND - RIGHT UPPER QUADRANT REASON FOR VISIT: Female, 52 years old RUQ pain TECHNIQUE: Ultrasound evaluation of the right upper quadrant was performed with real-time and static samuel-scale imaging. TECHNICAL QUALITY: Adequate. COMPARISON: Comparison is made with prior study dated July 16, 2021. FINDINGS: Liver: The liver measures 15.8 cm. There is normal echogenicity of the liver. The bile ducts are within normal limits. There is hepatic color flow. The direction of portal flow is hepatopetal. There is no demonstrated mass lesion. Gallbladder: The patient is status post cholecystectomy. Common Bile Duct (C.B.D.): The common bile duct measures 4.6 mm. Pancreas: Normal size of the head, body and tail of the pancreas. There is normal echogenicity of the pancreas. There is no demonstrated pancreatic mass or cyst. Right Kidney: Normal size of the right kidney. The right kidney measures 10.5 cm x 5 cm x 4.6 cm. Normal renal cortex. The right cortex measures 1.1 cm. There is no demonstrated renal mass or cyst. There is no right hydronephrosis. US/Abdomen Limited IMPRESSION: Status post cholecystectomy. No acute abnormality is seen. Electronically Signed: Richard Love MD at 13:59 EDT ,
== END | disposition home or self-care (01) ==
PROVIDERS: PCP Family Medicine; Referring Provider Internal Medicine Gastroenterology; Visit Provider Internal Medicine Gastroenterology
DX: R10.11 Right upper quadrant pain (principal)
CPT/HCPCS: 76705